=== PATIENT | male | born 1945 | race African-American/Black ===

== ENCOUNTER 2016-10-05 15:33 | Inpatient (IN) | payer OTHER ==
[~2016-10-05] VITALS: Ht 175.3 cm; Wt 113.4 kg
[2016-10-05] MEDS ORDERED: SODIUM CHLORIDE 0.9% 1,000 ML IV ONE (16:22)
[2016-10-05 17:04] LABS: Basophils # (auto) 0 uL; Basophils % (auto) 0.2 % (0.0-2.0); Eosinophils # (auto) 0.2 uL; Eosinophils % (auto) 1.8 % (0.0-7.0); Hematocrit 35.9 % (41.0-53.0); Hemoglobin 11.9 g/dL (13.5-17.5); Lymphocytes # (auto) 0.6 uL; Lymphocytes % (auto) 5.3 % (10.0-50.0); Mean Corpuscular Hemoglobin 29.1 pg (28.0-32.0); Mean Corpuscular Volume 88.4 fL (80.0-100.0); Mean Platelet Volume 7.3 fL (7.4-10.4); Monocytes # (auto) 0.4 uL; Monocytes % (auto) 3.7 % (0.0-12.0); Neutrophils # (auto) 9.3 uL; Platelet Count (auto) 290 10^3/uL (140-450); Red Cell Distribution Width 16.3 % (11.6-16.0); White Blood Cell 10.5 10^3/uL (4.4-10.8)
[2016-10-05 17:10] LABS: Calcium 8.2 mg/dL (8.5-10.1); Magnesium 2.4 mg/dL (1.6-2.6); Potassium 3.3 mmol/L (3.5-5.1)
[2016-10-05] MEDS ORDERED: ENOXAPARIN SOD 100 MG/1 ML SYRINGE SC ONE (17:45)
[2016-10-05] MEDS ORDERED: cefTRIAXone 1GM/50ML D5W 50 ML IV ONE (18:00)
[2016-10-05] MEDS ORDERED: ACETAMINOPHEN 325 MG TAB PO PRN (22:45)
[2016-10-05] MEDS ORDERED: TEMAZEPAM 15 MG CAP PO PRN (22:45)
[2016-10-05] MEDS ORDERED: ONDANSETRON HCL 4 MG/2 ML VIAL IV PRN (22:45)
[2016-10-05] MEDS ORDERED: AMI200T GT (23:02)
[2016-10-05] MEDS ORDERED: SEVE800T8 PO (23:02)
[2016-10-05] MEDS ORDERED: MONT10TA34 PO (23:02)
[2016-10-05] MEDS ORDERED: APIX5TAB OR (23:02)
[2016-10-05] MEDS ORDERED: PANT40T PO (23:02)
[2016-10-05] MEDS ORDERED: LEVO150T10 PO (23:02)
[2016-10-05] MEDS ORDERED: METO25TA62 PO (23:02)
[2016-10-05] MEDS: HYDROcodone-ACET 5/325MG TAB PO PRN (23:17)
[2016-10-05 23:30] VITALS: BP 114/53
[2016-10-06] VITALS (8 sets, daily range): BP systolic 93–130; BP diastolic 42–77
[2016-10-06] MEDS: HYDROcodone-ACET 5/325MG TAB PO PRN ×3 (03:27→17:18)
[2016-10-06 06:24] LABS: Basophils # (auto) 0 uL; Basophils % (auto) 0.2 % (0.0-2.0); Eosinophils # (auto) 0.2 uL; Eosinophils % (auto) 2.5 % (0.0-7.0); Hematocrit 30.6 % (41.0-53.0); Hemoglobin 10.1 g/dL (13.5-17.5); Lymphocytes # (auto) 0.4 uL; Lymphocytes % (auto) 5.3 % (10.0-50.0); Mean Corpuscular Hgb Conc. 33.1 g/dL (32.0-36.0); Mean Corpuscular Volume 87.6 fL (80.0-100.0); Mean Platelet Volume 7.1 fL (7.4-10.4); Monocytes # (auto) 0.5 uL; Monocytes % (auto) 6.7 % (0.0-12.0); Neutrophils # (auto) 6.1 uL; Neutrophils % (auto) 85.3 % (37.0-80.0); Platelet Count (auto) 236 10^3/uL (140-450); Red Cell Distribution Width 16.2 % (11.6-16.0); White Blood Cell 7.1 10^3/uL (4.4-10.8)
[2016-10-06] MEDS ORDERED: PNEUMOCOCCAL VACC POLYS 25 MCG/0.5 ML VIAL IM ONE (06:30)
[2016-10-06] MEDS ORDERED: LEVOTHYROXINE SODIUM 25 MCG TAB PO SCH (07:00)
[2016-10-06 07:07] LABS: Anion Gap 14 (5-15); Blood Urea Nitrogen 48 mg/dL (7-18); Calcium 7.8 mg/dL (8.5-10.1); Carbon Dioxide 26 mmol/L (21-32); Chloride 94 mmol/L (98-107); Glucose 101 mg/dL (74-106); Potassium 3.3 mmol/L (3.5-5.1); Sodium 134 mmol/L (136-145)
[2016-10-06 07:15] LABS: Alkaline Phosphatase 64 U/L (45-117); Aspartate Aminotransferase 6 U/L (15-37); BUN/Creatinine Ratio 3.2; Bilirubin, Total 0.3 mg/dL (0.2-1.0); GFR African American 4 mL/min; GFR Non-African American 3 mL/min; Total Protein 6.5 g/dL (6.4-8.2)
[2016-10-06] MEDS ORDERED: ENOXAPARIN SOD 30 MG/0.3 ML SYRINGE SC SCH (10:00)
[2016-10-06] MEDS ORDERED: AMIODARONE HCL 200 MG TAB PO SCH (10:00)
[2016-10-06] MEDS ORDERED: METOPROLOL SUCCINATE XL 50 MG TAB PO SCH (10:00)
[2016-10-06] MEDS ORDERED: FAMOTIDINE 20 MG TAB PO SCH (10:00)
[2016-10-06] MEDS ORDERED: ceFAZolin 1GM/50ML D5W 50 ML IV SCH (14:00)
[2016-10-06] MEDS ORDERED: POTASSIUM CHL 20 Meq TABLET PO SCH (14:00)
[2016-10-06] MEDS ORDERED: PIPERACILLIN-TAZOB 2.25GM 50 ML IV SCH (14:00)
[2016-10-06] MEDS ORDERED: B-COMPLEX W/ C & FOLIC ACID(NEPHROVITE TAB) PO SCH (14:14)
[2016-10-06] MEDS ORDERED: EPOETIN ALFA 10,000 UNIT/1 ML VIAL SC ONE (14:15)
[2016-10-06] MEDS ORDERED: ALBUMIN 25% 100 ML IV ONE (14:15)
[2016-10-06] MEDS ORDERED: VANCOMYCIN PER PHARMACY 0 MG IV SCH (15:30)
[2016-10-06] MEDS ORDERED: cefTAZidime 1 GM in D5W 5% 50 ML IV SCH (15:30)
[2016-10-06] MEDS ORDERED: VANCOMYCIN 1,250 MG in D5W 5% 250 ML IV ONE (16:00)
[2016-10-06] MEDS ORDERED: cefTRIAXone 1GM/50ML D5W 50 ML IV SCH (18:00)
== END 2016-10-06 21:15 | disposition short-term general hospital (02) | DRG 371 ==
LOC: ER 15:42 → OVERFLOW 15:43 → WEST WING 23:13
PROVIDERS: ADMIT Internal Medicine; ATTEND Internal Medicine Geriatric Medicine
DX: K65.2 Spontaneous bacterial peritonitis (principal); N18.6 End stage renal disease; I12.0 Hypertensive chronic kidney disease with stage 5 chronic kidney disease or end stage renal disease; J20.9 Acute bronchitis, unspecified; I50.9 Heart failure, unspecified; I48.91 Unspecified atrial fibrillation; E03.9 Hypothyroidism, unspecified; A63.0 Anogenital (venereal) warts; I70.0 Atherosclerosis of aorta; E66.01 Morbid (severe) obesity due to excess calories; E87.6 Hypokalemia; D64.9 Anemia, unspecified; Z68.36 Body mass index [BMI] 36.0-36.9, adult; Z95.0 Presence of cardiac pacemaker
CPT/HCPCS: 36415; 71010; 80048; 80053; 82306; 82728; 83540; 83550; 83735; 83970; 84100; 84484; 85025; 87040; 87081; 87205; 93005; 96361; 96365; 96366; J0696; J0885; J7060